=== PATIENT | female | born 1955 | race Caucasian/White ===

== ENCOUNTER → 2019-04-20 12:28 | Outpatient (CLI) | payer MEDICARE, MEDICAID, SELFPAY ==
[2019-04-07 12:40] VITALS: BMI 38.1
--- NOTE | 2019-04-20 12:31 | ECHOCS_ITS ---
Reason For Study: Dyspnea/SOB Procedure This was a 2D Doppler, Color Flow transthoracic echocardiogram. The study was technically difficult. Contrast injection was performed. Exam performed in department. Left Ventricle Normal LV size. Left ventricular systolic function is normal. The estimated ejection fraction is 70 %. Unable to assess diastolic dysfunction. No regional wall motion abnormalities noted. Right Ventricle Normal RV size. Normal systolic function. Atria Normal left atrium. Normal right atrium. No doppler evidence for ASD. Mitral Valve There is no mitral annular calcification. Mitral valve not well visualized. Tricuspid Valve The tricuspid valve is not well visualized. Aortic Valve Trisinus/trileaflet aortic valve. Mild focal aortic valve calcification. Pulmonic Valve The pulmonic valve is not well visualized. Trivial pulmonic valve insufficiency. Great Vessels The aortic root is not well visualized. Pericardium/Pleural No pericardial effusion. Medication 22 gauge I.V. with prn adaptor inserted into right arm. Diluted definity 2ml given slow IV push to enhance endocardial definition. MMode/2D Measurements & Calculations LVIDd: 3.7 cm IVSd: 1.1 cm LVIDs: 2.2 cm LVPWd: 1.0 cm FS: 39.7 % Time Measurements MV dec time: 0.33 sec Doppler Measurements & Calculations MV E max noe: 57.8 cm/sec Lat Peak E' Noe: 5.5 cm/sec MV V2 max: 86.8 cm/sec MV A max noe: 78.0 cm/sec E/E' lat: 10.5 MV max P.0 mmHg MV E/A: 0.74 MV V2 mean: 52.9 cm/sec MV mean P.3 mmHg MV V2 VTI: 16.7 cm MV P1/2t max noe: 69.5 cm/sec Ao V2 max: 125.1 cm/sec LV V1 max: 85.9 cm/sec MV P1/2t: 71.2 msec Ao max P.3 mmHg LV V1 max P.0 mmHg MV dec slope: 285.8 cm/sec2 MVA(P1/2t): 3.1 cm2 PA V2 max: 92.5 cm/sec Interpretation Summary The study was technically difficult. Contrast injection was performed. Left ventricular systolic function is normal. The estimated ejection fraction is 70 %. Mild focal aortic valve calcification. Trivial pulmonic valve insufficiency. Unable to assess diastolic dysfunction. Ordering Physician: Augie Walter Referring Physician: Nitesh Levine Performed By: Jayson Castaneda RCS
== END ==
PROVIDERS: Family Provider Family Medicine; PCP Family Medicine; Referring Provider Internal Medicine Critical Care Medicine; Visit Provider Internal Medicine Critical Care Medicine
DX: R06.09 Other forms of dyspnea (principal)
CPT/HCPCS: 93306; Q9957; A4216; C8929

== ENCOUNTER → 2019-07-23 | Outpatient (CLI) | payer MEDICARE, MEDICAID, SELFPAY ==
[2019-04-07 12:40] VITALS: BMI 38.1
--- NOTE | 2019-07-26 07:39 | PFT ---
INTRODUCTION: The patient is a 63-year-old female that presents for pulmonary function studies secondary to a diagnosis of dyspnea. Respiratory therapy reports good patient effort. Bronchodilators were used during testing. INTERPRETATION: Forced expiration spirometry demonstrates no evidence of a large airways obstructive ventilatory defect. There was, nevertheless, a significant response to aerosolized bronchodilators. Spirograms are of good quality and plateau normally. Body plethysmography was performed and reveals lung volumes to be within normal limits. Diffusing capacity by single breath CO is within normal limits as well. IMPRESSION: Normal spirometry, lung volumes and diffusing capacity. A significant response to bronchodilators was noted.
== END | disposition home or self-care (01) ==
LOC: PSN 07:55
PROVIDERS: Family Provider Family Medicine; PCP Family Medicine; Referring Provider Internal Medicine Critical Care Medicine; Visit Provider Internal Medicine Critical Care Medicine
DX: R06.09 Other forms of dyspnea (principal)
CPT/HCPCS: 94060; 94726; 94729

== ENCOUNTER → 2019-07-26 | Outpatient (CLI) | payer MEDICARE, MEDICAID, SELFPAY ==
[2019-04-07 12:40] VITALS: BMI 38.1
[2019-07-26 11:25] VITALS: PULSE 101; PULSE 103; PULSE 119; PULSE 122; PULSE 123; PULSE 125; PULSE 132; O2SAT 92; O2SAT 93; O2SAT 94; O2SAT 95; O2SAT 96
--- NOTE | 2019-07-26 13:04 | PCM.PSN.6M ---
PSN 6 Minute Walk Test - 6 Minute Walk Test 6 Minute Walk Test: 6 Minute Walk Test PSN:6-Minute Walk Test Start: 07/26/19 11:25 Freq: Status: Active Protocol: RESP.6MINW Document 07/26/19 11:25 JAQUELINE (Rec: 07/26/19 11:27 JAQUELINE [id number]) 6 Minute Walk Test Date Performed 07/26/19 Time Performed 11:00 Height 4 ft 10 in Weight: 164 lb Weight in Pounds 164.[address]: Augie Walter Assistive device used: None Pre-test Oxygen Delivery Method Room Air Pulse Ox (%) 95 Pulse Rate (60-100 beats/min) 101 H Dyspnea Facundo Scale (0-10) 1 Exertion Facundo Scale (6-20) 6 1st minute Oxygen Delivery Method Room Air Pulse Ox (%) 93 Pulse Rate (60-100 beats/min) 119 H 2nd minute Oxygen Delivery Method Room Air Pulse Ox (%) 92 Pulse Rate (60-100 beats/min) 122 H 3rd minute Oxygen Delivery Method Room Air Pulse Ox (%) 94 Pulse Rate (60-100 beats/min) 122 H 4th minute Oxygen Delivery Method Room Air Pulse Ox (%) 93 Pulse Rate (60-100 beats/min) 123 H 5th minute Oxygen Delivery Method Room Air Pulse Ox (%) 94 Pulse Rate (60-100 beats/min) 125 H 6th minute Oxygen Delivery Method Room Air Pulse Ox (%) 94 Pulse Rate (60-100 beats/min) 132 H Dyspnea Facundo Scale (0-10) 4 Exertion Facundo Scale (6-20) 14 Post-test Oxygen Delivery Method Room Air Pulse Ox (%) 96 Pulse Rate (60-100 beats/min) 103 H Full Laps Walked 18 Partial Lap, Number of Tiles Walked 35 Total Distance Walked (ft) 1097 - Interpretation Interpretation: The patient ambulated 1097 feet over the course of 6 minutes beginning on room air without assistive devices or breaks. Pretesting oxygen saturation was noted to be 95% on room air. With ambulation, the colin oxygen saturation was 92%. The patient did become progressively tachycardic with exertion, indicating the possibility of a cardiac limitation to exercise tolerance. There was no significant exertional oxygen desaturation. - Recommendations Recommendations: There is no indication for the use of supplemental oxygen at this time.
== END | disposition home or self-care (01) ==
LOC: PSN 10:56
PROVIDERS: Family Provider Family Medicine; PCP Family Medicine; Referring Provider Internal Medicine Critical Care Medicine; Visit Provider Internal Medicine Critical Care Medicine
DX: R06.09 Other forms of dyspnea (principal)
CPT/HCPCS: 94618

== ENCOUNTER → 2023-05-07 | Outpatient (CLI) | payer MEDICARE, MEDICAID, SELFPAY ==
--- NOTE | 2023-05-07 10:00 | CDU_ITS ---
Reason For Study: Unequal BP in upper extremities Rt. Velocities/BP Lt. Velocities/BP Prox CCA 16 cm/sec. Prox CCA 101/32 cm/sec. Mid CCA 10 cm/sec. Mid CCA 93/27 cm/sec. Dist CCA 22 cm/sec. Dist CCA 104/33 cm/sec. Bidirectional flow noted Rt CCA. Prox ICA 133/21 cm/sec. Prox ICA 11 cm/sec. Mid ICA 147/38 cm/sec. Mid ICA 22 cm/sec. Dist ICA 81/31 cm/sec. Dist ICA 25 cm/sec. Lt. ICA/CCA = 1.6. Rt. ICA/CCA = 2.5. Prox ECA 157/19 cm/sec. Bidirectional flow noted Rt ICA. Lt. Vert. 106/33 cm/sec. Prox ECA 34/11 cm/sec. Rt. Vert. 68/18 cm/sec. Right Extracranial There is homogeneous, irregular atherosclerotic plaque noted in the right common carotid artery. Bidirectional flow noted Rt CCA. There is heterogeneous, irregular atherosclerotic plaque noted in the right internal carotid artery. Bidirectional flow noted Rt ICA. There is intimal thickening but no significant atherosclerotic plaque noted in the right external carotid artery. Retrograde flow noted Rt Vert A. Left Extracranial There is heterogeneous, irregular atherosclerotic plaque noted in the left common carotid artery. There is heterogeneous, irregular atherosclerotic plaque noted in the left internal carotid artery. There is no significant atherosclerotic plaque noted in the left external carotid artery. Antegrade flow is noted in the left vertebral artery. Procedure Carotid Duplex 50322. This is a Carotid Duplex examination using B-mode, color flow and specral Doppler. Exam performed in department. VL/Carotid Duplex Ultrasound Interpretation Summary Mild (<50%) stenosis right extracranial internal carotid. Bi-directional flow a nd diminished velocities throughout CCA/ICA on the right indicating more proximal significant stenosis. Moderate (50-69%) stenosis left extracranial internal carotid. The Right vertebral flow is retrograde. The Left vertebral is patent and antegrade. Ordering Physician: Gita Casarez Referring Physician: Gita Casarez Performed By: Nikki Torrez, KENZIE, RVT
--- NOTE | 2023-05-07 10:01 | US_ITS ---
INDICATION: SCREENING, UNEQUAL BLOOD PRESSURE IN UPPER EXTREMITIES EXAMINATION: Ultrasound US Abdominal Aorta (retroperitoneal limited) TECHNIQUE: Graf scale and color doppler imaging was obtained of the abdominal aorta. COMPARISON: None. FINDINGS: There is no abdominal aortic aneurysm. Proximal aorta measures 1.5 x 1.9 cm, middle aorta 1.0 x 1.3 cm and distal aorta measures 1.0 x 1.3 cm. The iliac arteries are not enlarged. The right iliac artery measures 7.9 x 8.3 mm. The left iliac artery measures 7.6 x 8.6 mm. US/Aorta IMPRESSION: No sonographic evidence of abdominal aortic aneurysm. Electronically Signed: Lesia Zuniga MD at 17:13 EDT ,
== END | disposition home or self-care (01) ==
LOC: CVS 09:59
DX: K43.2 Incisional hernia without obstruction or gangrene (principal); R09.89 Other specified symptoms and signs involving the circulatory and respiratory systems
CPT/HCPCS: 76775; 93880

== ENCOUNTER → 2023-05-09 | Outpatient (CLI) | payer MEDICARE, MEDICAID, SELFPAY ==
--- NOTE | 2023-05-09 09:11 | CT_ITS ---
STUDY: CT ABDOMEN AND PELVIS WITH CONTRAST REASON FOR EXAM: Female, 67 years old. INCISIONAL HERNIA RADIATION DOSAGE (If Supplied By Facility): CTDIvol = ( 19.04 ) mGy, DLP = ( 1050.97 ) mGycm TECHNIQUE: Transaxial images were obtained from the dome of the diaphragm to the symphysis pubis with oral contrast. IV 100mL Isovue-300 was administered. Sagittal and coronal images were reconstructed. Individualized dose optimization techniques were used for this CT. COMPARISON: None. FINDINGS: The visualized lung bases are unremarkable. The visualized portions of the heart are within normal limits. Normal liver. Gallbladder is not seen consistent with cholecystectomy. Normal spleen. Normal pancreas. Normal bilateral adrenal glands. Normal right kidney. Normal left kidney. There is a small hiatal hernia. Normal small intestine. There is postoperative change adjacent to the stomach. There are multiple colonic diverticula consistent with diverticulosis. The appendix is visualized and appears normal. There is diffuse atherosclerotic calcification of the abdominal aorta, without a demonstrated aneurysm. Normal inferior vena cava. Normal retroperitoneum. Normal urinary bladder. There is atrophy of the uterus with small calcifications. There is 2.2 cm right adnexal cyst.. There is a upper anterior abdominal wall hernia containing fat. There is grade 2 spondylolisthesis at L5-S1 with bilateral pars interarticularis defects of L5. CT/Abdomen/Pelvis WITH Contrast IMPRESSION: Anterior abdominal wall hernia containing fat. Colonic diverticulosis. No obstruction. Small hiatal hernia. Spondylolisthesis with spondylolysis. Electronically Signed: Raul Acosta MD at 10:23 EDT ,
[2023-05-09 09:18] LABS: CREATININE FINGERSTICK < 0.9 mg/dL (0.55-1.02); EGFR FINGERSTICK > 60.0000 mL/min (>60)
== END | disposition home or self-care (01) ==
LOC: CT 06:44
DX: K43.2 Incisional hernia without obstruction or gangrene (principal)
CPT/HCPCS: 74177; Q9967

== ENCOUNTER → 2023-06-16 | Outpatient (CLI) | payer MEDICARE, MEDICAID, SELFPAY ==
--- NOTE | 2023-06-16 15:50 | RAD_ITS ---
EXAM: XR LUMBOSACRAL SPINE, 2 OR 3 VIEWS CLINICAL INDICATION: [id number] TECHNIQUE: Frontal and lateral views of the lumbar spine and sacrum. COMPARISON: CT abdomen and pelvis, 05/09/2023 FINDINGS: VERTEBRAE: Marked endplate sclerosis at L5-S1. Bilateral L5 spondylolysis with grade 3 anterolisthesis of L5 upon S1. Preserved vertebral body height. No fracture. Preservation of the normal lumbar lordosis. Lower lumbar facet arthrosis. DISC SPACES: Intervertebral disc height loss at L5-S1. Other disc spaces are relatively maintained VASCULATURE: Vascular calcifications. GASTROINTESTINAL TRACT: Normal as visualized. Included bowel gas pattern is non-obstructive. RAD/Lumbar Spine 2 or 3 Views IMPRESSION: Bilateral L5 spondylolysis with grade 3 anterolisthesis of L5 upon S1. RECOMMENDATIONS: Spine surgery consultation. Electronically Signed: Mychal Carrera DO at 20:35 EDT ,
== END | disposition home or self-care (01) ==
LOC: RAD 15:39
PROVIDERS: Referring Provider Anesthesiology Pain Medicine; Visit Provider Anesthesiology Pain Medicine
DX: M47.812 Spondylosis without myelopathy or radiculopathy, cervical region (principal)
CPT/HCPCS: 72100

== ENCOUNTER → 2023-10-16 | Outpatient (CLI) | payer MEDICARE, MEDICAID, SELFPAY ==
[2023-10-16 15:01] LABS: ALB/GLOB Ratio 1.2 RATIO (0.9-2.4); AST(SGOT) 23 U/L (15-37); Alanine Aminotransfer ALT/SGPT 35 U/L (13-56); Albumin, Serum 4.1 g/dL (3.2-5.0); Alkaline Phosphatase 69 U/L (45-117); Anion Gap 6 (5-15); BUN 17 mg/dL (7-18); BUN/Creat Ratio 19.1 RATIO (10-20); Calcium,Total 9.3 mg/dL (8.5-10.1); Chloride 104 mmol/L (98-107); Creatinine, Serum 0.89 mg/dL (0.55-1.02); EST Glomerular Filtration Rate 67 mL/min (>60); Est Glom Filt Rate - Afr Amer 81 mL/min (>60); Globulin 3.4 g/dL (2.2-4.2); Glucose 184 mg/dL (74-106); Potassium 5.2 mmol/L (3.5-5.1); Protein, Total 7.5 g/dL (6.4-8.2); Sodium Level 136 mmol/L (136-145)
--- OUTSIDE RECORDS SUMMARY | 2023-10-16 16:31 | XMS RPT_ITS | CCD ---
Author Name Unknown Address [address] [place] [address] Organization [facility] Care Team Providers Care [employer] Merchant Name Role Phone REECE GREEN DO Primary Care Physician CECILIA MCCLAIN Admitting Unavailable BASALI, AYMAN H Primary Care Unavailable BASALI, AYMAN H Attending Unavailable FALCON, HARSH PAC Consulting Unavailable PROVIDER, UNKNOWN Consulting Unavailable TERRIE, HARSH PAC Consulting Unavailable GILBERTO NIETO DR Admitting Unavailable GILBERTO NIETO DR Primary Care Unavailable GILBERTO NIETO DR Attending Unavailable PROVIDER, UNKNOWN Consulting Unavailable FALCON, HARSH PAC Consulting Unavailable FALCON, HARSH PAC Attending Unavailable FALCON, HARSH PAC Admitting Unavailable FALCON, HARSH PAC Primary Care Unavailable PROVIDER, UNKNOWN Consulting Unavailable SAMM PLASCENCIA MD Attending Unavailable ASMM PLASCENCIA MD Attending Unavailable PETER DO, REECE Primary Care Unavailable PETER DO, REECE Attending Unavailable BJ VELAZQUEZ MD, V Attending Unavailable PETER DO, REECE Primary Care Unavailable SAMM PLASCENCIA MD Admitting Unavailable SAMM PLASCENCIA MD Consulting Unavailable SAMM PLASCENCIA MD Attending Unavailable LORAINE PORTILLO-BIOLOGY PROFESSOR, HANNA Primary Care Unavail able SAMM PLASCENCIA MD Attending Unavailable PETER DO, REECE Primary Care Unavailable PETER DO, REECE Attending Unavailable Allergies Allergy Classification Reported Allergen(s) Allergy Type Date of Onset Reaction(s) Facility (2 sources) Codeine; Translations: [codeine] Drug Allergy Nausea and vomiting (disorder) [facility] (1 source) Codeine Drug Allergy [facility] Repository Medications Current Medications Medication Drug Class(es) Dates Sig (Normalized) Sig (Original) amitriptyline hydrochloride 25 mg oral tablet (2 sources) Tricyclic Antidepressant Start: 07-29-2023 amitriptyline 25 mg oral tablet Dose : 25 mg = 1 tab(s), Oral, qHS, # 60 tab(s), 0 Refill(s) Start Date: 07/29/23 Status: Ordered aspirin 81 mg delayed release oral tablet (2 sources) Platelet Aggregation Inhibitor, Nonsteroidal Anti-inflammatory Drug Start: 07-29-2023 aspirin 81 mg oral delayed release tablet Dose : 81 mg = 1 tab(s), Oral, Daily, 0 Refill(s) Start Date: 07/29/23 Status: Ordered clopidogrel 75 mg oral tablet (2 sources) P2Y12 Platelet Inhibitor Start: 07-29-2023 Plavix 75 mg oral tablet Dose : 75 mg = 1 tab(s), Oral, qDay, # 30 tab(s), 0 Refill(s) Start Date: 07/29/23 Status: Ordered 1 ml evolocumab 140 mg/ml auto-injector (1 source) PCSK9 Inhibitor Start: 10-06-2023 inject 1 dose by subcutaneous injection every other week Repatha SureClick 140 mg/mL subcutaneous solution Dose : 140 mg =, Subcutaneous, q2wk, rotate injection sites, # 2 EA, 11 Refill(s), Pharmacy: [id number], 147.3, cm, 10/06/23 8:59:00 EST, Height, kg, 10/06/23 8:59:00 EST, Dosing Weight Start Date: 10/06/23 Status: Ordered gabapentin 100 mg oral capsule (3 sources) Anti-epileptic Agent Start: 07-29-2023 gabapentin 100 mg oral capsule Dose : 200 mg = 2 cap(s), TAKE 1 CAPSULE BY MOUTH TWICE DAILY Start Date: 10/06/23 Status: Ordered levothyroxine sodium 0.15 mg oral tablet (3 sources) l-Thyroxine Start: 09-15-2023 End: 12-14-2023 Synthroid 150 mcg (0.15 mg) oral tablet Dose : 150 mcg = 1 tab(s), Oral, qDay, # 90 tab(s), 0 Refill(s), Pharmacy: [id number], 145, cm, 09/12/23 8:48:00 EST, Height, kg, 09/12/23 8:48:00 EST, Dosing Weight Start Date: 09/15/23 Stop Date: 12/14/23 Status: Ordered Completed/Discontinued Medications Medication Drug Class(es) Dates Sig (Normalized) Sig (Original) 24 hr metoprolol succinate 25 mg extended release oral tablet (3 sources) beta-Adrenergic Beth Start: 08-07-2023 End: 08-07-2023 metoprolol succinate 25 mg oral TABLET extended release Start: 08/07/23 10:00:00 PM EST, Dose = 25 mg, = 1 tab(s), Oral, 0, 08/07/23 13:34:00 EST Start Date: 08/07/23 Stop Date: 08/07/23 Status: Completed Problems Problem Classification Problem Date Documented Da te Episodic/Chronic Disorders of lipid metabolism (3 sources) Pure hypercholesterolemi a, unspecified; Translations: [Hyperlipidemia] Onset: 08-28-2023 Chronic Essential hypertension (2 sources) Essential hypertension; Translations: [Hypertensive disorder] 10-05-2023 Chronic Joint disorders and dislocations; trauma-related (1 source) Dislocation of shoulder joint 09-12-2023 Episodic Nonspecific chest pain (1 source) Chest pain 10-06-2023 Episodic Nutritional deficiencies (1 source) Vitamin D deficiency 09-12-2023 Chronic Occlusion or stenosis of precerebral arteries (1 source) Vertebral artery occlusion; Translations: [Occlusion and stenosis of unspecified vertebral artery] Chronic Osteoarthritis (3 sources) Post-traumatic osteoarthritis, left shoulder; Translations: [Post-traumatic osteoarthritis, left shoulder] Onset: 09-25-2022 Chronic Other circulatory disease (1 source) Stricture of artery; Translations: [Stricture of artery] Chronic Other connective tissue disease (2 sources) Fibromyalgia; Translations: [Fibromyalgia] Onset: 08-28-2023 Episodic Other connective tissue disease (1 source) Fibromyalgia 08-15-2023 Episodic Other non-traumatic joint disorders (1 source) Arthritis of shoulder region joint 09-12-2023 Chronic Other nutritional; endocrine; and metabolic disorders (1 source) Body mass index 30+ - obesity 10-06-2023 Chronic Spondylosis; intervertebral disc disorders; other back problems (3 sources) Dorsalgia, unspecified; Translations: [Dorsalgia, unspecified] Onset: 06-24-2023 Episodic Substance-related disorders (1 source) Nicotine dependence 09-12-2023 Chronic Thyroid disorders (2 sources) Hypothyroidism, unspecified; Translations: [Hypothyroidism, unspecified] Onset: 08-28-2023 Chronic Unclassified (1 source) Patient encounter status 09-12-2023 Results Test Name Value Interpretation Reference Range Facil ity Vital Signs Date Time Vital Sign Value Performing Clinician Faci lity 08-08-2023 07:31-0500 Body temperature 98.06 [degF] SAMM PLASCENCIA MD [facility] 08-08-2023 07:31-0500 Diastolic Blood Pressure Non-Invasive 74 mm[Hg] SAMM PLASCENCIA MD [facility] 08-08-2023 07:31-0500 Heart rate 67 /min SAMM PLASCENCIA MD [facility] 08-08-2023 07:31-0500 Mean blood pressure 81 mm[Hg] SAMM PLASCENCIA MD [facility] 08-08-2023 07:31-0500 Reason For Taking VItal Signs SAMM PLASCENCIA MD [facility] 08-08-2023 07:31-0500 Respiratory rate 18 /min SAMM PLASCENCIA MD [facility] 08-08-2023 07:31-0500 Systolic Blood Pressure Non-Invasive 96 mm[Hg] SAMM PLASCENCIA MD [facility] 08-08-2023 07:21-0500 Heart rate 66 /min SAMM PLASCENCIA MD [facility] 08-08-2023 07:21-0500 Respiratory rate 18 /min SAMM PLASCENCIA MD [facility] 08-08-2023 04:18-0500 Blood Pressure Location SAMM PLASCENCIA MD [facility] 08-08-2023 04:18-0500 Blood Pressure Method SAMM PLASCENCIA MD [facility] 08-08-2023 04:18-0500 Diastolic Blood Pressure Non-Invasive 56 mm[Hg] SAMM PLASCENCIA MD [facility] 08-08-2023 04:18-0500 Systolic Blood Pressure Non-Invasive 102 mm[Hg] SAMM PLASCENCIA MD [facility] 08-08-2023 04:14-0500 Blood Pressure Location SAMM PLASCENCIA MD [facility] 08-08-2023 04:14-0500 Blood Pressure Method SAMM PLASCENCIA MD [facility] 08-08-2023 04:14-0500 Body temperature 98.06 [degF] SAMM PLASCENCIA MD [facility] 08-08-2023 04:14-0500 Diastolic Blood Pressure Non-Invasive 60 mm[Hg] SAMM PLASCENCIA MD [facility] 08-08-2023 04:14-0500 Heart rate 66 /min SAMM PLASCENCIA MD [facility] 08-08-2023 04:14-0500 Mean blood pressure 68 mm[Hg] SAMM PLASCENCIA MD [facility] 08-08-2023 04:14-0500 Reason For Taking VItal Signs SAMM PLASCENCIA MD [facility] 08-08-2023 04:14-0500 Respiratory rate 18 /min SAMM PLASCENCIA MD [facility] 08-08-2023 04:14-0500 Systolic Blood Pressure Non-Invasive 82 mm[Hg] SAMM PLASCENCIA MD [facility] 08-08-2023 02:11-0500 Heart rate 67 /min SAMM PLASCENCIA MD [facility] 08-07-2023 23:58-0500 Reason For Taking VItal Signs SAMM PLASCENCIA MD [facility] 08-07-2023 23:39-0500 Body temperature 97.52 [degF] SAMM PLASCENCIA MD [facility] 08-07-2023 23:39-0500 Mean blood pressure 68 mm[Hg] SAMM PLASCENCIA MD [facility] 08-07-2023 21:04-0500 Diastolic blood pressure 73 mm[Hg] SAMM PLASCENCIA MD [facility] 08-07-2023 21:04-0500 Heart rate 79 /min SAMM PLASCENCIA MD [facility] 08-07-2023 21:04-0500 Mean blood pressure 99 mm[Hg] SAMM PLASCENCIA MD [facility] 08-07-2023 21:04-0500 Systolic blood pressure 144 mm[Hg] SAMM PLASCENCIA MD [facility] 08-07-2023 20:21-0500 Diastolic blood pressure 52 mm[Hg] SAMM PLASCENCIA MD [facility] 08-07-2023 20:21-0500 Mean blood pressure 70 mm[Hg] SAMM PLASCENCIA MD [facility] 08-07-2023 20:21-0500 Systolic blood pressure 107 mm[Hg] SAMM PLASCENCIA MD [facility] 08-07-2023 19:12-0500 Heart rate 85 /min SAMM PLASCENCIA MD [facility] 08-07-2023 18:30-0500 Diastolic blood pressure 65 mm[Hg] SAMM PLASCENCIA MD [facility] 08-07-2023 18:30-0500 Mean blood pressure 99 mm[Hg] SAMM PLASCENCIA MD [facility] 08-07-2023 18:30-0500 Systolic blood pressure 152 mm[Hg] SAMM PLASCENCIA MD [facility] 08-07-2023 15:00-0500 Respiratory Rate - Anes 14 br/min SAMM PLASCENCIA MD [facility] 08-07-2023 14:55-0500 Body temperature 97.38 [degF] SAMM PLASCENCIA MD [facility] 08-07-2023 14:55-0500 Respiratory Rate - Anes 18 br/min SAMM PLASCENCIA MD [facility] 08-07-2023 14:50-0500 Body temperature 97.36 [degF] SAMM PLASCENCIA MD [facility] 08-07-2023 14:50-0500 Respiratory Rate - Anes 16 br/min SAMM PLASCENCIA MD [facility] 08-07-2023 10:56-0500 Body height 147.3 cm SAMM PLASCENCIA MD [facility] 08-07-2023 10:56-0500 Body weight 33.18 kg/m2 SAMM PLASCENCIA MD [facility] 08-07-2023 10:56-0500 Body weight 72 kg SAMM PLASCENCIA MD [facility] 08-07-2023 10:56-0500 Heart rate 68 /min SAMM PLASCENCIA MD [facility] Encounters Encounter Date Encounter Type Care Provider Facility Start: 10-07-2023 End: 10-07-2023 Patient encounter procedure [facility] Start: 09-23-2023 ambulatory [facility] Facility :B Start: 08-28-2023 End: 09-02-2023 ambulatory [facility] Facility:CD:[id number] Start: 08-07-2023 End: 08-08-2023 Evaluation and management of inpatient [facility] Facility:A Start: 08-07-2023 End: 08-08-2023 Evaluation and management of inpatient SAMM PLASCENCIA MD [facility] Start: 07-24-2023 ambulatory HANNA BARON APRN-BIOLOGY PROFESSOR Facility:A Start: 06-24-2023 End: 09-02-2023 ambulatory IRISCROSBYTON Jorge Luis [facility] Start: 06-13-2023 End: 06-14-2023 ambulatory SAMM PLASCENCIA MD Facility:B Start: 06-09-2023 End: 06-10-2023 ambulatory SAMM PLASCENCIA MD Facility:B Start: 06-09-2023 End: 06-09-2023 Patient encounter procedure SAMM PLASCENCIA MD [facility] Start: 04-03-2023 End: 04-04-2023 ambulatory BJ VELAZQUEZ MD Facility:A Start: 09-25-2022 End: 11-29-2022 ambulatory [facility] Start: 09-06-2022 End: 09-06-2022 [facility] Procedures Date Procedure Procedure Detail Performing Clinician Start: 08-07-2023 Carotid endarterectomy REECE PETER DO Immunizations Immunization Date Immunization Notes Care Provider Fa cili 06-24-2023 influenza virus vacc ine, unspecified formulation SAMM PLASCENCIA MD [facility] 06-24-2023 pneumococcal 20-bro nt conjugate vaccine SAMM PLASCENCIA MD [facility] 06-24-2023 SARS-CoV-2 (COVID-19 ) [id number] SAMM PLASCENCIA MD [facility] 09-06-2022 zoster vaccine recombinant SAMM PLASCENCIA MD [facility] 06-17-2022 influenza virus vacc ine, unspecified formulation SAMM PLASCENCIA MD [facility] 06-17-2022 zoster vaccine recombinant SAMM PLASCENCIA MD [facility] 08-17-2021 SARS-CoV-2 mRNA (tozinameran) vaccine SAMM PLASCENCIA MD [facility] 07-13-2021 influenza virus vacc ine, unspecified formulation SAMM PLASCENCIA MD [facility] 06-27-2020 influenza virus vacc ine, unspecified formulation SAMM PLASCENCIA MD [facility] 06-08-2020 influenza virus vacc ine, unspecified formulation SAMM PLASCENCIA MD [facility] 06-24-2019 influenza virus vacc ine, unspecified formulation SAMM PLASCENCIA MD [facility] 07-14-2018 influenza virus vacc ine, unspecified formulation SAMM PLASCENCIA MD [facility] 07-09-2017 influenza virus vacc ine, unspecified formulation SAMM PLASCENCIA MD [facility] 07-01-2017 influenza virus vacc ine, unspecified formulation SAMM PLASCENCIA MD [facility] 07-12-2016 influenza virus vacc ine, unspecified formulation SAMM PLASCENCIA MD [facility] 07-09-2015 influenza virus vacc ine, unspecified formulation SAMM PLASCENCIA MD [facility] 07-01-2015 influenza virus vacc ine, unspecified formulation SAMM PLASCENCIA MD [facility] 09-30-2013 influenza virus vacc ine, unspecified formulation SAMM PLASCENCIA MD [facility] 06-03-2012 influenza virus vacc ine, unspecified formulation SAMM PLASCENCIA MD [facility] Payers Date Payer Category Payer Medicare [id number] 2023 Medicaid [id number] 2023 Medicare [id number] 1955 Unknown [id number] [id number] 1955 Unknown [id number] 2.16.84 [id number] 1955 Unknown [id number] 2.16.84 [id number] 1955 Unknown [id number] 2.16.8 [id number] 1955 Unknown [id number] 2.16.8 [id number] 1955 Unknown [id number] 2.16.8 [id number] 1955 Unknown [id number] 2.16.8 [id number] 1955 Unknown [id number] 2.16.8 [id number] 1955 Unknown [id number] 2.16.8 [id number] 1955 Unknown [id number] 2.16.8 [id number] Social History Date Type Detail Facility Start: 07-29-2023 Tobacco smoking status Heavy t obacco smoker (finding) [facility] Sex Assigned At Sex [facility] Functional Status Date Assessment Result Facility 08-08-2023 Functional Status Mobile home [facility] 08-08-2023 Functional Status [facility] 08-08-2023 Functional Status Room check performed [facility] 08-08-2023 Functional Status 3am-7am [facility] 08-08-2023 Functional Status [facility] 08-07-2023 Functional Status [facility] 11-30-2023 Functional Status [facility] 08-07-2023 Functional Status Patient Identified Iden tification band [facility] 08-07-2023 Functional Status Maintained [facility] 07-29-2023 Functional Status [facility] Mental Status Date Assessment Result Facility 08-08-2023 Mental Status Orientation Oriented x 4 [facility] 08-08-2023 Mental Status [facility] 08-07-2023 Mental Status [facility] 08-07-2023 Mental Status [facility] 08-07-2023 Mental Status [facility] Clinical Notes 08-07-2023 to 10-07-2023 RadiologyLaboratoryRadiology Note Date & Type Note Facility 10-07-2023 Note ORIGINAL EXAMINATION: BONE DENSITOMETRY 10/07/2023 9:29 am TECHNIQUE: A bone density dual x-ray absorptiometry (DEXA) scan was performed of the axial (e.g. hips, spine) and/or appendicular (e.g. radius) skeleton as appropriate. COMPARISON: None. HISTORY: ORDERING SYSTEM PROVIDED HISTORY: Reason for Exam: bone density screening FINDINGS: T Score Left Femoral Neck: -1.7 Left Femoral Neck: 0.656 (g/cm2) T Score Left Hip: -0.4 Left Hip: 0.892 (g/cm2) T Score Lumbar Spine: -3.4 Lumbar Spine: 0.676 (g/cmd2) IMPRESSION: Osteoporosis by WHO criteria. World Health Organization criteria: (Comparing with young normal sex matched population) - Normal: T-score at or above -1 SD (standard deviation) - Osteopenia: T-score between -1 and -2.5 SD - Osteoporosis: T-score at or below -2.5 SD The NOF recommends that FDA-approved medical therapies be considered in post-menopausal women and men age >/= 50 years with a: * Hip or vertebral fracture, or * T-score of /= 20% for major osteoporotic fractures or * >/= 3% for hip fractures All treatment decisions require clinical judgement and consideration of individual patient factors, including patient preferences, comorbidities, previous drug use, risk factors not captured in the FRAX registered model (e.g., frailty, falls, vitamin D deficiency, increased bone turnover, interval significant decline in bone density) and possible under- or over-estimation of fracture risk by FRAX. Interpreted by: Juan Lowry DO Preliminary Report By: Juan Lowry DO Electronically signed By Juan Lowry DO Dictated Date: 10/07/2023 9:36:31 AM Prelim Date: 10/07/2023 9:37:01 AM Sign Date: 10/07/2023 9:37:01 AM Ordering Provider: [facility] 08-08-2023 Hospital Discharg e instructions Patient Education 08/08/2023 09:43:01 Angiogram, Care After Angiogram, Care After This sheet gives you information about how to care for yourself after your procedure. Your health care provider may also give you more specific instructions. If you have problems or questions, contact your health care provider. What can I expect after the procedure? After the procedure, it is common to have bruising and tenderness at the catheter insertion area. Follow these instructions at home: Insertion site care Follow instructions from your health care provider about how to take care of your insertion site. Make sure you: ?Wash your hands with soap and water before you change your bandage (dressing). If soap and water are not available, use hand dethistler operator. ?Change your dressing as told by your health care provider. ?Leave stitches (sutures), skin glue, or adhesive strips in place. These skin closures may need to stay in place for 2 weeks or longer. If adhesive strip edges start to loosen and curl up, you may trim the loose edges. Do not remove adhesive strips completely unless your health care provider tells you to do that. Do not take baths, swim, or use a hot tub until your health care provider approves. You may shower 24 48 hours after the procedure or as told by your health care provider. ?Gently wash the site with plain soap and water. ?Pat the area dry with a clean towel. ?Do not rub the site. This may cause bleeding. Do not apply powder or lotion to the site. Keep the site clean and dry. Check your insertion site every day for signs of infection. Check for: ?Redness, swelling, or pain. ?Fluid or blood. ?Warmth. ?Pus or a bad smell. Activity Rest as told by your health care provider, usually for 1 2 days. Do not lift anything that is heavier than 10 lbs. (4.5 kg) or as told by your health care provider. Do not drive for 24 hours if you were given a medicine to help you relax (sedative). Do not drive or use heavy machinery while taking prescription pain medicine. General instructions Return to your normal activities as told by your health care provider, usually in about a week. Ask your health care provider what activities are safe for you. If the catheter site starts bleeding, lie flat and put pressure on the site. If the bleeding does not stop, get help right away. This is a medical emergency. Drink enough fluid to keep your urine clear or pale yellow. This helps flush the contrast dye from your body. Take [id number] and prescription medicines only as told by your health care provider. Keep all follow-up visits as told by your health care provider. This is important. Contact a health care provider if: You have a fever or chills. You have redness, swelling, or pain around your insertion site. You have fluid or blood coming from your insertion site. The insertion site feels warm to the touch. You have pus or a bad smell coming from your insertion site. You have bruising around the insertion site. You notice blood collecting in the tissue around the catheter site (hematoma). The hematoma may be painful to the touch. Get help right away if: You have severe pain at the catheter insertion area. The catheter insertion area swells very fast. The catheter insertion area is bleeding, and the bleeding does not stop when you hold steady pressure on the area. The area near or just beyond the catheter insertion site becomes pale, cool, tingly, or numb. These symptoms may represent a serious problem that is an emergency. Do not wait to see if the symptoms will go away. Get medical help right away. Call your local emergency services (911 in the [place] Do not drive yourself to the hospital. Summary After the procedure, it is common to have bruising and tenderness at the catheter insertion area. After the procedure, it is important to rest and drink plenty of fluids. Do not take baths, swim, or use a hot tub until your health care provider says it is okay to do so. You may shower 24 48 hours after the procedure or as told by your health care provider. If the catheter site starts bleeding, lie flat and put pressure on the site. If the bleeding does not stop, get help right away. This is a medical emergency. This information is not intended to replace advice given to you by your health care provider. Make sure you discuss any questions you have with your health care provider. Document Released: 03/13/2006 Document Revised: 08/07/2018 Document Reviewed: 07/30/2017 [employer] Patient Education 2020 [employer]. Follow Up Care 07/24/2023 15:58:04 With:HANNA BARON Address: [address] [facility] [address] [place] [address] [phone] When:5 to 7 days Comments:Call the office to schedule a follow up appointment With:SAMM PLASCENCIA MD, [facility], Surgery, Vascular Surgeons Address: [facility] [address] [phone] When:1-2 days Comments:Follow up as scheduled or call the office to schedule an appointment. [facility] 08-08-2023 Note Discharge Instructions Thank you for allowing [facility] to assist you with your healthcare needs. The following is important discharge information regarding your hospital visit. 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 Where: [facility] [address] [place] [id number] The Following Activity and Diet Have Been Ordered for You No qualifying data available. No qualifying data available. The Following Equipment Has Been Ordered for You No qualifying data available. The Following Treatments Have Been Ordered for You Discharge Labs No qualifying data available. Discharge Radiology No qualifying data available. Other Therapies No qualifying data available. Post Acute Orders No qualifying data available. Someone Will Contact You Regarding These Home Health Referrals No home referrals have been ordered for you. No one will call you. Allergies codeine (Nausea and vomiting) Medications Please ask your primary doctor or pharmacist before taking any other medication not listed, including over the counter drugs, herbal medications, vitamins and or supplements as they may interact with your home medications. What How Much When Instructions Last Dose Unchanged amitriptyline (amitriptyline 25 mg oral tablet) 1 tab(s) by mouth Daily at bedtime Unchanged aspirin (aspirin 81 mg oral delayed release tablet) 1 tab(s) by mouth Every day Unchanged budesonide-formoterol (Symbicort 160 mcg-4.5 mcg/ inh Inhaler) 2 puff(s) by inhalation Two (2) times a day Unchanged clopidogrel (Plavix 75 mg oral tablet) 1 tab(s) by mouth Once a day Unchanged gabapentin (gabapentin 100 mg oral capsule) 1 cap by mouth Two (2) times a day Unchanged levothyroxine (levothyroxine 125 mcg (0.125 mg) oral tablet) 1 tab(s) by mouth Once a day Unchanged lisinopril (lisinopril 10 mg oral tablet) 1 tab(s) by mouth Once a day (in the evening) Unchanged meloxicam (meloxicam 7.5 mg oral tablet) 1 tab(s) by mouth Once a day Unchanged metoprolol (metoprolol succinate 25 mg oral TABLET extended release) 1 tab(s) by mouth Daily at bedtime Do not crush or chew (controlled release) Unchanged Misc Medication (Tumeric-Silvia) 1 cap by mouth Two (2) times a day Please take this list to your next doctor s visit. Bring all medications you take, including over the counter medications, herbals and other supplements with you to your doctor s visit. Patients and families are reminded to discard old lists and to update any records with all medication providers or retail pharmacies. Medication Leaflets gabapentin (GA ba PEN tin) Gralise, Horizant, Neurontin What is the most important information I should know about gabapentin? Gabapentin can cause life-threatening breathing problems, especially if you already have a breathing disorder or if you use other medicines that can make you drowsy or slow your breathing. Seek emergency medical attention if you have very slow breathing. Some people have thoughts about suicide while taking seizure medicine. Stay alert to changes in your mood or symptoms. Tell your doctor right away if you have any sudden changes in mood or behavior, or thoughts about suicide. Seizures may increase if you stop using gabapentin suddenly. Ask your doctor before stopping the medicine. What is gabapentin? Gabapentin is used in adults and children at least 3 years old together with other medicines to treat partial seizures. Gabapentin is also used in adults to treat nerve pain caused by shingles (herpes zoster). Gralise is used only in adults to treat nerve pain. Horizant is used only in adults to treat nerve pain and restless legs syndrome (RLS). Gabapentin may also be used for purposes not listed in this medication guide. What should I discuss with my healthcare provider before taking gabapentin? You should not take gabapentin if you are allergic to it. Tell your doctor if you have or have ever had: breathing problems; diabetes; depression, a mood disorder, or suicidal thoughts or actions; drink alcohol; a history of drug addiction; a seizure; (patients with RLS) if you are a day sleeper or work a welder 2nd shift; or kidney disease (or if you are on dialysis). Some people have thoughts about suicide while taking seizure medicine. Children taking gabapentin may have behavior changes. Stay alert to changes in your mood or symptoms. Your family or caregivers should also watch for sudden changes in your behavior. It is not known if gabapentin will harm an unborn baby. Tell your doctor if you are or plan to become . Do not start or stop seizure medication during without your doctor's advice. Having a seizure during could harm both mother and baby. Tell your doctor if you become . If you are , your name may be listed on a registry to track the effects of gabapentin on the baby. Ask a doctor if it is safe to breastfeed while using this medicine. How should I take gabapentin? Follow all directions on your prescription label and read all medication guides or instruction sheets. Your doctor may occasionally change your dose. Take the medicine exactly as directed. Never take gabapentin in larger amounts, or for longer than prescribed. Your dose needs may change if you switch to a different brand, strength, or form of this medicine. Avoid medication errors by using only the medicine your doctor prescribes. You may take gabapentin with or without food. Take Gralise and Horizant with food. If you break a Gabapentin tablet and take only half of it, take the other half at your next dose. Any tablet that has been broken should be used as soon as possible or within a few days. Swallow the tablets of Gralise and Horizant whole. Do not crush, break, or dissolve it. Swallow the capsule whole and do not crush, chew, break, or open it. Measure liquid medicine with the supplied measuring device (not a kitchen spoon). Doses are based on weight in children. Your child's dose may change if the child gains or loses weight. You should not stop taking gabapentin suddenly. Stopping suddenly may cause increased seizures. Follow your doctor's instructions about tapering your dose. This medicine can affect the results of certain medical tests. Tell any doctor who treats you that you are using gabapentin. Your kidney function may need to be checked often and your dose may change based on the results. Store gabapentin tablets and capsules at room temperature away from moisture and heat. Store the liquid medicine in the refrigerator, do not freeze. Follow all storage instructions provided with gabapentin. Your pharmacist can provide more information about how to store this medicine. What happens if I miss a dose? Take the medicine as soon as you can, but skip the missed dose if it is almost time for your next dose. Do not take two doses at one time. If you take Horizant: skip the missed dose and take your next dose at the regular time. Do not use two doses at one time. What happens if I overdose? Seek emergency medical attention or call the Poison Help line at . An overdose can be fatal. Overdose symptoms may include slow breathing, double vision, tremor, slurred speech, drowsiness, change in your mental state, dizziness, tiredness, or diarrhea. What should I avoid while taking gabapentin? Avoid driving or hazardous activity until you know how this medicine will affect you. Dizziness or drowsiness can cause falls, accidents, or severe injuries. Avoid taking an antacid within 2 hours before you take gabapentin. Do not drink alcohol. Dangerous side effects could occur. What are the possible side effects of gabapentin? Get emergency medical help if you have signs of an allergic reaction: hives, difficult breathing, swelling of your face, lips, tongue, or throat. Seek medical treatment if you have a serious drug reaction that can affect many parts of your body. Symptoms may include skin rash, fever, swollen glands, muscle aches, severe weakness, unusual bruising, or yellowing of your skin or eyes. Tell your doctor right away if you have new or sudden changes in mood or behavior, including new or worse depression or anxiety, panic attacks, trouble sleeping, or if you feel impulsive, irritable, agitated, hostile, aggressive, restless, more active or talkative, or have thoughts about suicide or hurting yourself. Gabapentin can slow or stop your breathing, especially if you have recently used an opioid medication or alcohol. A person caring for you should seek emergency medical attention if you have slow breathing with long pauses, blue colored lips, or if you are hard to wake up. Some side effects are more likely in children taking gabapentin. Call your doctor if the child has any of the following side effects: behavior changes, memory problems, trouble concentrating, or acting restless, hostile, or aggressive. Call your doctor at once if you have: drowsiness, dizziness, weakness; problems with balance or muscle movement; or increased seizures. Common side effects may include: fever, chills, sore throat, body aches, tiredness; headache; swelling of your legs and feet; trouble speaking; vision problems, dizziness, drowsiness; tremors, problems with balance or muscle movement; or nausea, vomiting. This is not a complete list of side effects and others may occur. Call your doctor for medical advice about side effects. You may report side effects to FDA at 6-511-SCD-2290. What other drugs will affect gabapentin? Taking gabapentin with other drugs that make you drowsy or slow your breathing can cause dangerous side effects or . Ask your doctor before taking opioid medication, a sleeping pill, a muscle relaxer, or medicine for anxiety or seizures. Tell your doctor about all your current medicines. Many drugs can affect gabapentin, especially: naproxen; opioid medicine--hydrocodone, oxycodone, morphine, buprenorphine; zolpidem; lorazepam; or cimetidine. This list is not complete and many other drugs may affect gabapentin. This includes prescription and [id number] medicines, vitamins, and herbal products. Not all possible drug interactions are listed here. Where can I get more information? Your doctor or pharmacist can provide more information about gabapentin. Remember, keep this and all other medicines out of the reach of children, never share your medicines with others, and use this medication only for the indication prescribed. Every effort has been made to ensure that the information provided by [employer]. ('[employer]') is accurate, up-to-date, and complete, but no guarantee is made to that effect. Drug information contained herein may be time sensitive. [employer] information has been compiled for use by healthcare practitioners and consumers in the [place] and therefore [employer] does not warrant that uses outside of the [place] are appropriate, unless specifically indicated otherwise. [employer] drug information does not endorse drugs, diagnose patients or recommend therapy. [employer] drug information is an informational resource designed to assist licensed healthcare practitioners in caring for their patients and/or to serve consumers viewing this service as a supplement to, and not a substitute for, the expertise, skill, knowledge and judgment of healthcare practitioners. The absence of a warning for a given drug or drug combination in no way should be construed to indicate that the drug or drug combination is safe, effective or appropriate for any given patient. [employer] does not assume any responsibility for any aspect of healthcare administered with the aid of information [employer] provides. The information contained herein is not intended to cover all possible uses, directions, precautions, warnings, drug interactions, allergic reactions, or adverse effects. If you have questions about the drugs you are taking, check with your doctor, nurse or pharmacist. Copyright 5541-1092 [employer]. Version: 18.01. Revision Date: 03/10/2023. meloxicam (oral/injection) (jodi OKS i carlos) Anjeso, Mobic, Vivlodex What is the most important information I should know about meloxicam? Meloxicam can increase your risk of fatal heart attack or stroke. Do not use this medicine just before or after heart bypass surgery (coronary artery bypass graft, or CABG). Meloxicam may also cause stomach or intestinal bleeding, which can be fatal. What is meloxicam? Meloxicam is a nonsteroidal anti-inflammatory drug (NSAID) that is used to treat osteoarthritis or rheumatoid arthritis in adults. Meloxicam is also used to treat juvenile rheumatoid arthritis in children who are at least 2 years old. The Anjeso brand of meloxicam is used to treat moderate to severe pain in adults. Vivlodex is for use only in adults. Meloxicam may also be used for purposes not listed in this medication guide. What should I discuss with my healthcare provider before receiving meloxicam? Meloxicam can increase your risk of fatal heart attack or stroke. Do not use this medicine just before or after heart bypass surgery (coronary artery bypass graft, or CABG). Meloxicam may also cause stomach or intestinal bleeding, which can be fatal. Meloxicam may also cause stomach or intestinal bleeding, which can be fatal. These conditions can occur without warning while you are using meloxicam, especially in older adults. You should not use meloxicam if you are allergic to it, or if you ever had an asthma attack or severe allergic reaction after taking aspirin or an NSAID. Tell your doctor if you have ever had: heart disease, high blood pressure, high cholesterol, diabetes, or if you smoke; a heart attack, stroke, or blood clot; ulcers or stomach bleeding; asthma; kidney disease (or if you are on dialysis); liver disease; or fluid retention. If you are , you should not take meloxicam unless your doctor tells you to. Taking an NSAID during the last 20 weeks of can cause serious heart or kidney problems in the unborn baby and possible complications with your . Meloxicam may cause a delay in ovulation (the release of an egg from an ovary). You should not take meloxicam if you are undergoing fertility treatment, or are otherwise trying to get . Ask a doctor if it is safe to breastfeed while using this medicine. Meloxicam is not approved for use by anyone younger than 2 years old. How is meloxicam given? Follow all directions on your prescription label and read all medication guides or instruction sheets. Use the lowest effective dose for your condition. Meloxicam oral is taken by mouth. Meloxicam injection is given as an infusion into a vein. A healthcare provider will give you this injection. Your dose needs may change if you switch to a different brand, strength, or form of this medicine. Avoid medication errors by using only the medicine your doctor prescribes. Meloxicam doses are based on weight (especially in children and teenagers). Your dose needs may change if you gain or lose weight. If you use this medicine long-term, you may need frequent medical tests. Store meloxicam oral suspension, tablets or capsules at room temperature, away from moisture and heat. Keep the bottle tightly closed when not in use. What happens if I miss a dose? Use the medicine as soon as you can, but skip the missed dose if it is almost time for your next dose. Do not use two doses at one time. What happens if I overdose? Seek emergency medical attention or call the Poison Help line at . What should I avoid while receiving meloxicam? Drinking alcohol may increase your risk of stomach bleeding. Avoid taking aspirin while you are taking meloxicam, unless your doctor tells you to. Ask a doctor or pharmacist before using other medicines for pain, fever, swelling, or cold/flu symptoms. They may contain ingredients similar to meloxicam (such as aspirin, ibuprofen, ketoprofen, or naproxen). What are the possible side effects of meloxicam? Get emergency medical help if you have signs of an allergic reaction (hives, difficult breathing, swelling in your face or throat) or a severe skin reaction (fever, sore throat, burning eyes, skin pain, red or purple skin rash with blistering and peeling). Get emergency medical help if you have signs of a heart attack or stroke: chest pain spreading to your jaw or shoulder, sudden numbness or weakness on one side of the body, slurred speech, leg swelling, feeling short of breath. Stop using meloxicam and call your doctor at once if you have: the first sign of any skin rash, no matter how mild; shortness of breath (even with mild exertion); swelling or rapid weight gain; signs of stomach bleeding--bloody or tarry stools, coughing up blood or vomit that looks like coffee grounds; liver problems--nausea, upper stomach pain, itching, tired feeling, flu-like symptoms, loss of appetite, dark urine, ramiro-colored stools, jaundice (yellowing of the skin or eyes); low red blood cells (anemia)--pale skin, unusual tiredness, feeling light-headed, cold hands and feet; or kidney problems--little or no urination, swelling in your feet or ankles, feeling tired or short of breath. Common side effects may include: stomach pain, nausea, vomiting, heartburn; diarrhea, constipation, gas; dizziness; or cold symptoms, flu symptoms. This is not a complete list of side effects and others may occur. Call your doctor for medical advice about side effects. You may report side effects to FDA at 7-315-HUT-6972. What other drugs will affect meloxicam? Ask your doctor before using meloxicam if you take an antidepressant. Taking certain antidepressants with an NSAID may cause you to bruise or bleed easily. Tell your doctor about all your other medicines, especially: cyclosporine; lithium; methotrexate; pemetrexed; sodium polystyrene sulfonate (Kayexalate); a blood thinner (warfarin, Coumadin, Jantoven); heart or blood pressure medication, including a diuretic or 'water pill'; or steroid medicine (such as prednisone). This list is not complete. Other drugs may affect meloxicam, including prescription and [id number] medicines, vitamins, and herbal products. Not all possible drug interactions are listed here. Where can I get more information? Your doctor or pharmacist can provide more information about meloxicam. Remember, keep this and all other medicines out of the reach of children, never share your medicines with others, and use this medication only for the indication prescribed. Every effort has been made to ensure that the information provided by [employer]. [employer]') is accurate, up-to-date, and complete, but no guarantee is made to that effect. Drug information contained herein may be time sensitive. [employer] information has been compiled for use by healthcare practitioners and consumers in the [place] and therefore [employer] does not warrant that uses outside of the [place] are appropriate, unless specifically indicated otherwise. [employer] drug information does not endorse drugs, diagnose patients or recommend therapy. [employer] drug information is an informational resource designed to assist licensed healthcare practitioners in caring for their patients and/or to serve consumers viewing this service as a supplement to, and not a substitute for, the expertise, skill, knowledge and judgment of healthcare practitioners. The absence of a warning for a given drug or drug combination in no way should be construed to indicate that the drug or drug combination is safe, effective or appropriate for any given patient. [employer] does not assume any responsibility for any aspect of healthcare administered with the aid of information [employer] provides. The information contained herein is not intended to cover all possible uses, directions, precautions, warnings, drug interactions, allergic reactions, or adverse effects. If you have questions about the drugs you are taking, check with your doctor, nurse or pharmacist. Copyright [id number] [employer]. Version: 16.. Revision Date: 11/13/2022. metoprolol (oral/injection) (me TOE pro lol) Kapspargo Sprinkle, Lopressor, Metoprolol Succinate ER, Metoprolol Tartrate, Toprol-XL What is the most important information I should know about metoprolol? You should not use this medicine if you have a serious heart problem (heart block, sick sinus syndrome, slow heart rate), severe circulation problems, severe heart failure, or a history of slow heart beats that caused fainting. What is metoprolol? Metoprolol is a beta-beth that affects the heart and circulation (blood flow through arteries and veins). Metoprolol is used to treat angina (chest pain) and hypertension (high blood pressure). It is also used to lower your risk of or needing to be hospitalized for heart failure. Metoprolol injection is used during the early phase of a heart attack to lower the risk of . Metoprolol may also be used for other purposes not listed in this medication guide. What should I discuss with my healthcare provider before taking metoprolol? You should not use this medicine if you are allergic to metoprolol, or other beta-blockers (atenolol, carvedilol, labetalol, nadolol, nebivolol, propranolol, sotalol, and others), or if you have: a serious heart problem such as heart block, sick sinus syndrome, or slow heart rate; severe circulation problems; severe heart failure (that required you to be in the hospital); or a history of slow heart beats that have caused you to faint. Tell your doctor if you have ever had: asthma, chronic obstructive pulmonary disease (COPD), sleep apnea, or other breathing disorder; diabetes (taking metoprolol may make it harder for you to tell when you have low blood sugar); liver disease; congestive heart failure; problems with circulation (such as Raynaud's syndrome); a thyroid disorder; or pheochromocytoma (tumor of the adrenal gland). Do not give this medicine to a child without medical advice. Tell your doctor if you are or plan to become . It is not known whether metoprolol will harm an unborn baby. However, having high blood pressure during may cause complications such as diabetes or eclampsia (dangerously high blood pressure that can lead to medical problems in both mother and baby). The benefit of treating hypertension may outweigh any risks to the baby. Ask a doctor before using this medicine if you are breast-feeding. Metoprolol can pass into breast milk and may cause dry skin, dry mouth, diarrhea, constipation, or slow heartbeats in your baby. How should I take metoprolol? Follow all directions on your prescription label and read all medication guides or instruction sheets. Your doctor may occasionally change your dose. Use the medicine exactly as directed. Metoprolol should be taken with a meal or just after a meal. Take the medicine at the same time each day. Swallow the capsule whole and do not crush, chew, break, or open it. A Toprol XL tablet can be divided in half if your doctor has told you to do so. Swallow the half-tablet whole, without chewing or crushing. Measure liquid medicine carefully. Use the dosing syringe provided, or use a medicine dose-measuring device (not a kitchen spoon). You will need frequent medical tests, and your blood pressure will need to be checked often. If you need surgery, tell the surgeon ahead of time that you are using metoprolol. You should not stop using metoprolol suddenly. Stopping suddenly may make your condition worse. If you have high blood pressure, keep using this medicine even if you feel well. High blood pressure often has no symptoms. You may need to use metoprolol for the rest of your life. Store at room temperature away from moisture and heat. Metoprolol injection is given as an infusion into a vein. A healthcare provider will give you this injection in a medical setting where your heart and blood pressure can be monitored. Metoprolol injections are given for only a short time before switching you to the oral form of this medicine. What happens if I miss a dose? Skip the missed dose and use your next dose at the regular time. Do not use two doses at one time. What happens if I overdose? Seek emergency medical attention or call the Poison Help line at . What should I avoid while taking metoprolol? Avoid driving or hazardous activity until you know how this medicine will affect you. Your reactions could be impaired. Drinking alcohol can increase certain side effects of metoprolol. What are the possible side effects of metoprolol? Get emergency medical help if you have signs of an allergic reaction: hives; difficulty breathing; swelling of your face, lips, tongue, or throat. Call your doctor at once if you have: very slow heartbeats; a light-headed feeling, like you might pass out; shortness of breath (even with mild exertion), swelling, rapid weight gain; or cold feeling in your hands and feet. Common side effects may include: dizziness, tired feeling; depression, confusion, memory problems; nightmares, trouble sleeping; diarrhea; or mild itching or rash. This is not a complete list of side effects and others may occur. Call your doctor for medical advice about side effects. You may report side effects to FDA at 4-903-SLO-9234. What other drugs will affect metoprolol? Tell your doctor about all your current medicines. Many drugs can affect metoprolol, especially: any other heart or blood pressure medications; epinephrine (Epi-Pen); an antidepressant; an ergot medicine--dihydroergotamine, ergonovine, ergotamine, methylergonovine; or an MAO inhibitor--isocarboxazid, linezolid, phenelzine, rasagiline, selegiline, tranylcypromine. This list is not complete and many other drugs may affect metoprolol. This includes prescription and ubhr-ous-yyxmtlc medicines, vitamins, and herbal products. Not all possible drug interactions are listed here. Where can I get more information? Your pharmacist can provide more information about metoprolol. Remember, keep this and all other medicines out of the reach of children, never share your medicines with others, and use this medication only for the indication prescribed. Every effort has been made to ensure that the information provided by [employer]. [employer]') is accurate, up-to-date, and complete, but no guarantee is made to that effect. Drug information contained herein may be time sensitive. [employer] information has been compiled for use by healthcare practitioners and consumers in the [place] and therefore [employer] does not warrant that uses outside of the [place] are appropriate, unless specifically indicated otherwise. [employer] drug information does not endorse drugs, diagnose patients or recommend therapy. [employer] drug information is an informational resource designed to assist licensed healthcare practitioners in caring for their patients and/or to serve consumers viewing this service as a supplement to, and not a substitute for, the expertise, skill, knowledge and judgment of healthcare practitioners. The absence of a warning for a given drug or drug combination in no way should be construed to indicate that the drug or drug combination is safe, effective or appropriate for any given patient. [facility] does not assume any responsibility for any aspect of healthcare administered with the aid of information [facility] provides. The information contained herein is not intended to cover all possible uses, directions, precautions, warnings, drug interactions, allergic reactions, or adverse effects. If you have questions about the drugs you are taking, check with your doctor, nurse or pharmacist. Copyright 9608-3405 [facility] [employer]. Version: 19.. Revision Date: 04/16/2023. lisinopril (lyse [place] pril) Prinivil, Qbrelis, Zestril What is the most important information I should know about lisinopril? Do not use if you are . Stop using this medicine and tell your doctor right away if you become . Tell your doctor about all your other medicines. Some drugs should not be used with lisinopril. What is lisinopril? Lisinopril is used alone or in combination with other medications to treat high blood pressure in adults and children at least 6 years old. Lisinopril is also used in adults to treat congestive heart failure and to improve survival after a heart attack. Lisinopril may also be used for purposes not listed in this medication guide. What should I discuss with my healthcare provider before taking lisinopril? You should not use lisinopril if you are allergic to it or to any other SHAKA (angiotensin converting enzyme) inhibitor such as captopril, fosinopril, enalapril, benazepril, moexipril, perindopril, quinapril, ramipril, or trandolapril. Do not take lisinopril within 36 hours before or after taking medicine that contains sacubitril (such as Entresto). If you have diabetes, do not take lisinopril with any medication that contains aliskiren (a blood pressure medicine). Do not take lisinopril if you have a history of angioedema (severe allergic reaction). Tell your doctor if you have ever had: heart disease, heart problems such as a recent heart attack; low blood pressure; low white blood cell count; stomach pain; if you are on a low-salt diet; diabetes; liver disease; or kidney disease (or if you are on dialysis). You may also need to avoid taking lisinopril with aliskiren if you have kidney disease. Stop using this medicine and tell your doctor right away if you become . Lisinopril can cause injury or to the unborn baby if you use the medicine during your second or third trimester. Do not breastfeed. How should I take lisinopril? Follow all directions on your prescription label and read all medication guides or instruction sheets. Your doctor may occasionally change your dose. Use the medicine exactly as directed. You may take lisinopril with or without food. Measure liquid medicine with the supplied measuring device (not a kitchen spoon). Your blood pressure will need to be checked often and you may need frequent blood tests. Tell your doctor if you have a planned surgery. Call your doctor if you have ongoing vomiting or diarrhea, or if you are sweating more than usual. You can easily become dehydrated while taking lisinopril. This can lead to very low blood pressure, an electrolyte imbalance, or kidney failure. If you have high blood pressure, keep using this medicine even if you feel well. High blood pressure often has no symptoms. Store tightly closed at room temperature, away from moisture and heat. Do not freeze. What happens if I miss a dose? Take the medicine as soon as you can, but skip the missed dose if it is almost time for your next dose. Do not take two doses at one time. What happens if I overdose? Seek emergency medical attention or call the Poison Help line at . What should I avoid while taking lisinopril? Avoid getting up too fast from a sitting or lying position, or you may feel dizzy. Do not use potassium supplements or salt substitutes, unless your doctor has told you to. Avoid becoming overheated or dehydrated during exercise, in hot weather, or by not drinking enough fluids. Follow your doctor's instructions about the type and amount of liquids you should drink. In some cases, drinking too much liquid can be as unsafe as not drinking enough. What are the possible side effects of lisinopril? Get emergency medical help if you have signs of an allergic reaction: severe stomach pain, hives, difficult breathing, swelling of your face, lips, tongue, or throat. Call your doctor at once if you have: a light-headed feeling, like you might pass out; high blood potassium--nausea, weakness, tingly feeling, chest pain, irregular heartbeats, loss of movement; low white blood cell counts--fever, mouth sores, skin sores, sore throat, cough; kidney problems--swelling, urinating less, feeling tired or short of breath; or liver problems--loss of appetite, stomach pain (upper right side), tiredness, itching, dark urine, ramiro-colored stools, jaundice (yellowing of the skin or eyes). Common side effects may include: headache, dizziness; low blood pressure, cough; or chest pain. This is not a complete list of side effects and others may occur. Call your doctor for medical advice about side effects. You may report side effects to FDA at 3-227-ZVG-7578. What other drugs will affect lisinopril? Lisinopril can harm your kidneys, especially if you also use certain medicines for infections, cancer, or osteoporosis. Tell your doctor about all your other medicines, especially: a diuretic or 'water pill' that may increase blood potassium such as spironolactone, triamterene, or amiloride; NSAIDs (nonsteroidal anti-inflammatory drugs)--aspirin, ibuprofen (Advil, Motrin), naproxen (Aleve), celecoxib, diclofenac, indomethacin, meloxicam, and others; insulin or diabetes medications; medicine to prevent organ transplant rejection such as temsirolimus, sirolimus, or everolimus; or heart or blood pressure medication. This list is not complete. Other drugs may affect lisinopril, including prescription and mfmp-tac-tkxobgq medicines, vitamins, and herbal products. Not all possible drug interactions are listed here. Where can I get more information? Your doctor or pharmacist can provide more information about lisinopril. Remember, keep this and all other medicines out of the reach of children, never share your medicines with others, and use this medication only for the indication prescribed. Every effort has been made to ensure that the information provided by [employer]. [employer]') is accurate, up-to-date, and complete, but no guarantee is made to that effect. Drug information contained herein may be time sensitive. [employer] information has been compiled for use by healthcare practitioners and consumers in the [place] and therefore [employer] does not warrant that uses outside of the [place] are appropriate, unless specifically indicated otherwise. [employer] drug information does not endorse drugs, diagnose patients or recommend therapy. [facility] [employer] [facility] drug information is an informational resource designed to assist licensed healthcare practitioners in caring for their patients and/or to serve consumers viewing this service as a supplement to, and not a substitute for, the expertise, skill, knowledge and judgment of healthcare practitioners. The absence of a warning for a given drug or drug combination in no way should be construed to indicate that the drug or drug combination is safe, effective or appropriate for any given patient. [employer] does not assume any responsibility for any aspect of healthcare administered with the aid of information [employer] provides. The information contained herein is not intended to cover all possible uses, directions, precautions, warnings, drug interactions, allergic reactions, or adverse effects. If you have questions about the drugs you are taking, check with your doctor, nurse or pharmacist. Copyright [id number] [employer]. Version: 18.. Revision Date: 03/03/2023. clopidogrel (kloe PID oh grel) Plavix What is the most important information I should know about clopidogrel? You should not use this medicine if you have any active bleeding such as a stomach ulcer or bleeding in the brain. Clopidogrel increases your risk of bleeding, which can be severe or life-threatening. Call your doctor or seek emergency medical attention if you have bleeding that will not stop, if you have blood in your urine, black or bloody stools, or if you cough up blood or vomit that looks like coffee grounds. Do not stop taking clopidogrel without first talking to your doctor, even if you have signs of bleeding. Stopping clopidogrel may increase your risk of a heart attack or stroke. What is clopidogrel? Clopidogrel is used to lower your risk of having a stroke, blood clot, or serious heart problem after you've had a heart attack, severe chest pain (angina), or circulation problems. Clopidogrel may also be used for purposes not listed in this medication guide. What should I discuss with my healthcare provider before taking clopidogrel? You should not use clopidogrel if you are allergic to it, or if you have: any active bleeding; or a stomach ulcer or bleeding in the brain (such as from a head injury). Tell your doctor if you have ever had: an ulcer in your stomach or intestines; or a bleeding disorder or blood clotting disorder. Clopidogrel may not work as well if you have certain genetic factors that affect the breakdown of this medicine in your body. Your doctor may perform a blood test to make sure clopidogrel is right for you. This medicine is not expected to harm an unborn baby. However, taking clopidogrel within 1 week before childbirth can cause bleeding in the mother. Tell your doctor if you are or plan to become . You should not breastfeed while using this medicine. How should I take clopidogrel? Follow all directions on your prescription label and read all medication guides or instruction sheets. Use these medicines exactly as directed. Clopidogrel can be taken with or without food. Clopidogrel is sometimes taken together with aspirin. Take aspirin only if your doctor tells you to. Clopidogrel keeps your blood from coagulating (clotting) and can make it easier for you to bleed, even from a minor injury. Contact your doctor or seek emergency medical attention if you have any bleeding that will not stop. You may need to stop using clopidogrel for a short time before a surgery, medical procedure, or dental work. Any healthcare provider who treats you should know that you are taking clopidogrel. Do not stop taking clopidogrel without first talking to your doctor, even if you have signs of bleeding. Stopping the medicine could increase your risk of a heart attack or stroke. Store at room temperature away from moisture and heat. What happens if I miss a dose? Take the medicine as soon as you can, but skip the missed dose if it is almost time for your next dose. Do not take two doses at one time. What happens if I overdose? Seek emergency medical attention or call the Poison Help line at . Overdose can cause excessive bleeding. What should I avoid while taking clopidogrel? Avoid alcohol. It can increase your risk of stomach bleeding. Avoid activities that may increase your risk of bleeding or injury. Use extra care to prevent bleeding while shaving or brushing your teeth. If you also take aspirin: Ask a doctor or pharmacist before using m (more content not included)... [facility] 08-07-2023 Anesthesiology Consult note Patient: CARLOS SAMUELS Age: 67 years Sex: Female : 1955 Associated Diagnoses: None Author: EDGARD VERDE DO Preoperative Information Greater than 6 hours Anesthesia history Patient's history: negative. Family's history: negative. Review of Systems Ear/Nose/Mouth/Throat: Negative except as documented in history of present illness. Respiratory: Negative except as documented in history of present illness, COPD and Smoker. Cardiovascular: Negative except as documented in history of present illness, Severe RUE subclavian stenosis for angio/stenting. Gastrointestinal: Negative except as documented in history of present illness. Genitourinary: Negative except as documented in history of present illness. Endocrine: Negative except as documented in history of present illness. Musculoskeletal: Negative except as documented in history of present illness. Integumentary: Negative except as documented in history of present illness. Neurologic: Negative except as documented in history of present illness. Health Status Allergies: Allergic Reactions (Selected) Severity Not Documented Codeine- Nausea and vomiting., Allergies (1) ActiveReaction codeineNausea and vomiting Current medications: (Selected) Inpatient Medications Ordered NS 1,000 mL: 20 mL/hr, Intravenous, Stop: 08/07/23 23:59:00 EST Plavix: 75 mg, 1 tab(s), Oral, qDay amitriptyline: 25 mg, 1 tab(s), Oral, qHS aspirin 81 mg oral delayed release tablet: 81 mg, 1 tab(s), Oral, Daily gabapentin: 100 mg, 1 cap(s), Oral, BID levothyroxine: 125 mcg, 1 tab(s), Oral, qDay lisinopril: 10 mg, 1 tab(s), Oral, qPM metoprolol succinate 25 mg oral TABLET extended release: 25 mg, 1 tab(s), Oral, qHS Incomplete Pulmicort Respules 0.5 mg/2 mL inhalation suspension: Tumeric-Silvia: 1 cap, Oral, BID albuterol 2.5 mg/3 mL (0.083%) inhalation solution: meloxicam 7.5 mg oral tablet: 7.5 mg, 1 tab(s), Oral, qDay Documented Medications Documented Plavix 75 mg oral tablet: 75 mg, 1 tab(s), Oral, qDay, 30 tab(s), 0 Refill(s) Symbicort 160 mcg-4.5 mcg/inh Inhaler: 2 puff(s), Inhalation, BID, 0 Refill(s) Tumeric-Silvia: 1 cap, Oral, BID, 0 Refill(s) amitriptyline 25 mg oral tablet: 25 mg, 1 tab(s), Oral, qHS, 60 tab(s), 0 Refill(s) aspirin 81 mg oral delayed release tablet: 81 mg, 1 tab(s), Oral, Daily, 0 Refill(s) gabapentin 100 mg oral capsule: 100 mg, 1 cap(s), Oral, BID, 60 cap(s), 0 Refill(s) levothyroxine 125 mcg (0.125 mg) oral tablet: 125 mcg, 1 tab(s), Oral, qDay, 30 tab(s), 0 Refill(s) lisinopril 10 mg oral tablet: 10 mg, 1 tab(s), Oral, qPM, 100 tab(s), 0 Refill(s) meloxicam 7.5 mg oral tablet: 7.5 mg, 1 tab(s), Oral, qDay, 30 tab(s), 0 Refill(s) metoprolol succinate 25 mg oral TABLET extended release: 25 mg, 1 tab(s), Oral, qHS, Do not crush or chew (controlled release), 30 tab(s), 0 Refill(s), Medications (8) Active Scheduled: (7) amitriptyline 25 mg tablet 25 mg 1 tab(s), Oral, qHS aspirin 81 mg EC 81 mg 1 tab(s), Oral, Daily clopidogrel 75 mg Tablet 75 mg 1 tab(s), Oral, qDay gabapentin 100 mg Capsule 100 mg 1 cap(s), Oral, BID levothyroxine 125 mcg tablet 125 mcg 1 tab(s), Oral, qDay lisinopril 10 mg tablet 10 mg 1 tab(s), Oral, qPM metoprolol succinate 25 mg ER tablet 25 mg 1 tab(s), Oral, qHS Continuous: (1) NS (0.9% nacl) 1,000 mL 1,000 mL, Intravenous, 20 mL/hr PRN: (0) Problem list: Active Problems (11) Arthritis Asthma H/O: osteoarthritis High blood pressure Hx of vertebral artery stenosis Hypercholesterolemia Hypothyroidism Incisional hernia Presence of dental prosthetic device Rheumatic fever Tobacco use Histories Past Medical History: No active or resolved past medical history items have been selected or recorded. Family History: Diverticulitis Mother Heart disease Grandparent Heart attack Father Procedure history: Colonoscopy ([id number]) in 2016 at 60 Years. Nereida fundoplication ([id number]) in 2012 at 56 Years. Cholecystectomy ([id number]) in 2010 at 54 Years. Social History Social & Psychosocial Habits Alcohol 08/07/2023 Use: Never Substance Abuse 08/07/2023 Use: Current Type: Marijuana Tobacco 08/07/2023 Tobacco Use: 10 or more cigarettes (1/ Started at age: 14 Years Smoking Cessation Information Instructed to not smoke d Home/Environment 08/07/2023 Living situation: Home/Independent Financial concerns: No Domestic Concerns None Lives In Mobile home Current Home Treatments None Special Services and Community Resources food stamps Marital Status of Patient if Patient Independent Adult: Nutrition/Health 08/07/2023 Type of diet: Regular Appetite Good Sexual 08/07/2023 Self described orientation: Straight or heterosexual What is your current gender identity? (Check all that apply) Identifies as female . Physical Examination Vital Signs(last 24 hrs) Last Charted Temp Oral36.5 DegC (AUG 07 10:56) Heart Rate Ncurlzfft94 bpm (AUG 07 14:00) Resp Rate 16 br/min (AUG 07 10:56) LSX951 mmHg (AUG 07 13:16) DBP86 mmHg (AUG 07 13:16) BMI33.18 (AUG 07 10:56) General: Alert and oriented. Airway: Normal temporomandibular joint mobility, Normal mouth, Normal throat, Normal neck range of motion, Trachea midline. Mallampati classification: II (soft palate, fauces, uvula visible). Head: Normocephalic. Dentition Evaluation: Own teeth, Dentures, upper. Neck: Supple. Respiratory: Lungs are clear to auscultation. Cardiovascular: Normal rate. Heart Sounds: Normal. Gastrointestinal: Soft. Musculoskeletal Normal range of motion. Integumentary: Intact, Warm, Dry, [place]. Neurologic: Alert, Oriented. Review / Management Results review: Labs (Last four charted values) WBC 8.4(AUG 07) Hgb 16.0(AUG 07) Hct H 47.1(AUG 07) Plt 299(AUG 07) Na 137(AUG 07) K 4.7(AUG 07) CO2 24(AUG 07) Cl 106(AUG 07) Cr 0.53(AUG 07) BUN 12.0(AUG 07) Glucose 104(AUG 07) Ca 10.0(AUG 07) . Assessment and Plan [employer] Society of Anesthesiologists (ASA) physical status classification: Class IV. Anesthetic Preoperative Plan Premedication: None. Anesthetic technique: General. Induction: intravenously. Maintenance airway: Oral endotracheal tube. Special techniques: Warming device, no Extracorporeal. Special Monitoring: Arterial line. Postoperative pain management: Per surgeon. Risks discussed: nausea, vomiting, headache, sore throat, dental injury, hypotension, allergic reaction, serious complications. Informed consent: signed by patient. Beta Beth: Beta Beth Taken Within 24 Hrs: Yes. Digitally Signed by EDGARD VERDE DO on 08/07/2023 02:35 PM [facility] 08-07-2023 Note SINUS RHYTHM BORDERLINE LEFT AXIS DEVIATION ABNORMAL R-WAVE PROGRESSION, EARLY TRANSITION Electronic Signature: LORENA PASCUAL MD 08/08/2023 18:40:11 [facility] Evaluation + Plan note Future Appointments Appointment Date:06/13/2023 09:30:00 AM Scheduled Provider: Location:[facility] Appointment Type:CT Angiography Neck w/ Contrast Future Scheduled TestsCT Angiography Neck w/ Contrast 06/13/23 [facility] Evaluation + Plan note Future Appointments Appointment Date:08/15/2023 10:00:00 AM Scheduled Provider:REECE GREEN DO Location:[facility] Appointment Type:LIDIA OV TCM 40 Appointment Date:09/12/2023 09:00:00 AM Scheduled Provider:REECE GREEN DO Location:[facility] Appointment Type:LIDIA EXPERIMENTAL [employer]ARD [employer] [facility] Evaluation + Plan note Future Appointments Appointment Date:12/15/2023 10:00:00 AM Scheduled Provider:REECE GREEN DO Location:[facility] Appointment Type:PC OV Follow Up Future Scheduled TestsThyroid Stimulating Hormone 12/12/23Free T4 12/12/23Lipid Profile 12/12/23Lipid Profile 01/05/24NM Myocardial Spect Rest/Stress 10/06/23 [facility] Hospital course Narrative No data available for this section [facility] Hospital Discharge instructions No data available for this section [facility] Progress note No data available for this section [facility] Summary Purpose Family History No Family History Records FoundNo Family History Records Found No data available for this section No data available for this section No Family History Records FoundNo Family History Records Found No data available for this section Advance Directives No Advanced Directives Records FoundNo Advanced Directives Records FoundNo Advanced Directives Records FoundNo Advanced Directives Records Found Additional Source Comments INFORMATION SOURCE (unrecogn ized section and content) DATE CREATED AUTHOR AUTHOR'S ORGANIZ ATION 03/01/2023 [facility] DATE CREATED AUTHOR AUTHOR'S ORGANIZ ATION 09/04/[address] [facility] DATE CREATED AUTHOR AUTHOR'S ORGANIZ ATION 09/24/2023 [facility] ([place]) Patient Care team informatio n (unrecognized section and content) Care Team Related Persons Name: JENNIFER SAMUELS Address: [address] [place] [address] Care Team Personnel Name: REECE GREEN DO Position: P4 Physician - Primary Care Member Role: Primary Care Physician Address: Address: [address] Care Team Related Persons Name: JENNIFER SAMUELS Address: [address] [place] [address] Care Team Personnel Name: REECE GREEN DO Position: P4 Physician - Primary Care Member Role: Primary Care Physician Address: Address: [address] Care Team Related Persons Name: JENNIFER SAMUELS Address: Home [address] [place] [address] FOR RECORDS PERTAINING TO PATIENTS WHO ARE OR HAVE BEEN ENROLLED IN A CHEMICAL DEPENDENCY/SUBSTANCEABUSE PROGRAM, SOME INFORMATION MAY BE OMITTED. This clinical summary was aggregated from multiple sources. Caution should be exercised in using it in the provision of clinical care. This summary normalizes information from multiple sources, and as a consequence, information in this document may materially change the coding, format and clinical context of patient data. In addition, data may be omitted in some cases. CLINICAL DECISIONS SHOULD BE BASED ON THE PRIMARY CLINICAL RECORDS. [facility]. provides no warranty or guarantee of the accuracy or completeness of information in this document.
[2023-10-16 21:53] LABS: Xtra Tube EP Lab EXTRA TUBE
== END | disposition home or self-care (01) ==
DX: M81.0 Age-related osteoporosis without current pathological fracture (principal)
CPT/HCPCS: 36415; 80053

== ENCOUNTER → 2024-02-18 | Outpatient (CLI) | payer MEDICARE, MEDICAID, SELFPAY ==
--- NOTE | 2024-02-18 07:55 | ADUUE_ITS ---
Reason For Study: Aftercare RIGHT Innominate artery, stent, 190.7 cm/sec. Innominate artery, distal to stent, 139.6 cm/sec. Right Subclavian velocity = 114.9 cm/sec. Right Axillary velocity = 71 cm/sec. Right Brachial velocity = 101.9 cm/sec. Right Radial velocity = 85.5 cm/sec. Right Ulnar velocity = 70.2 cm/sec. /US Art Duplex Unilat UP Extrem Interpretation Summary This is a normal bilateral upper extremity arterial duplex exam. Ordering Physician: Noel Vásquez Performed By: Francisca Caceres RVT
--- NOTE | 2024-02-18 07:55 | ART_ITS ---
Reason For Study: Aftercare Procedure A bilateral upper extremity continuous wave Doppler with analog waveform analysis and segmental pressures. Left Segmental Pressures Left brachial= 128mmHg. Left ulnar= 162mmHg. Left radial= 153mmHg. The left radial waveforms are triphasic. The left ulnar waveforms are triphasic. Right Segmental Pressures Right brachial= 112mmHg. Right ulnar= 128mmHg. Right radial= 120mmHg. The right radial waveforms are triphasic. The right ulnar waveforms are triphasic. Indices The right wrist-brachial index by the radial artery is 0.94. The right wrist-brachial indec by the ulnar artery is 1.00. The left wrist-brachial index by the radial artery is 1.20. The left wrist- brachial indec by the ulnar artery is 1.27. VL/Ankle Brachial Index Interpretation Summary Resting ankle-brachial indices appear bilaterally normal. Ordering Physician: Noel Vásquez Performed By: Francisca Caceres RVT and Student
== END | disposition home or self-care (01) ==
PROVIDERS: Referring Provider Surgery Vascular Surgery; Visit Provider Surgery Vascular Surgery
DX: Z48.812 Encounter for surgical aftercare following surgery on the circulatory system (principal); I65.09 Occlusion and stenosis of unspecified vertebral artery; I65.23 Occlusion and stenosis of bilateral carotid arteries; I10 Essential (primary) hypertension; F17.200 Nicotine dependence, unspecified, uncomplicated
CPT/HCPCS: 93922; 93931

== ENCOUNTER → 2024-11-18 | Outpatient (CLI) | payer MEDICARE, MEDICAID, SELFPAY ==
--- NOTE | 2024-11-18 10:21 | ADUUE_ITS ---
Reason For Study Reason For Study: Stricture of artery RIGHT Innominate artery, stent, 300.2 cm/sec. Innominate artery, distal to stent, 107.0 cm/sec. Right Subclavian velocity = 92.5 cm/sec. Right Axillary velocity = 73.2 cm/sec. Right Brachial velocity = 78.1 cm/sec. Right Radial velocity = 63.4 cm/sec. Right Ulnar velocity = 56.0 cm/sec. VL/US Art Duplex Unilat UP Extrem Interpretation Summary Right innominate stent moderate stenossi but triphasic flow maintained. Ordering Physician: Noel Vásquez Referring Physician: Out of town doctor Performed By: Francisca Caceres RVT and Student
--- NOTE | 2024-11-18 10:22 | ART_ITS ---
Reason For Study Reason For Study: Stricture of artery Procedure A bilateral upper extremity continuous wave Doppler with analog waveform analysis and segmental pressures. Left Segmental Pressures Left brachial= 130mmHg. Left radial= 151mmHg. Left ulnar= 152mmHg. Left digit = 100 mmHg. The left radial waveforms are triphasic. The left ulnar waveforms are triphasic. Right Segmental Pressures Right brachial= 100mmHg. Right radial= 110mmHg. Right ulnar= 113mmHg. Right digit = 111 mmHg. The right radial waveforms are biphasic. The right ulnar waveforms are biphasic. Indices The right wrist-brachial index by the radial artery is 0.85. The right wrist- brachial index by the ulnar artery is 0.87. The right digital-brachial index is 0.85. The left wrist-brachial index by the radial artery is 1.16. The left wrist- brachial index by the ulnar artery is 1.17. The left digital-brachial index is 0.77. VL/Ankle Brachial Index Interpretation Summary Right arm mild occlussive disease and left arm normal. Ordering Physician: Samm Plascencia Referring Physician: SAMM PLASCENCIA DR. Performed By: Francisca Caceres RVT and Student
== END | disposition home or self-care (01) ==
LOC: CVS 10:21
PROVIDERS: Referring Provider Surgery Vascular Surgery; Visit Provider Surgery Vascular Surgery
DX: I65.23 Occlusion and stenosis of bilateral carotid arteries (principal); I65.09 Occlusion and stenosis of unspecified vertebral artery; F17.200 Nicotine dependence, unspecified, uncomplicated; E03.9 Hypothyroidism, unspecified; I77.1 Stricture of artery; I10 Essential (primary) hypertension
CPT/HCPCS: 93922; 93931